=== PATIENT | female | born 1995 | race Caucasian/White ===

== ENCOUNTER → 2018-03-25 12:27 | Outpatient (CLI) | payer OTHER, MEDICAID, SELFPAY ==
[2018-03-25 14:49] LABS: Hematocrit 39.9 % (36-46); Hemoglobin 13.6 g/dL (12.0-16.0)
[2018-03-25 15:13] LABS: Glucose Tol Interpretation INTERPRETATION
[2018-03-25 15:34] LABS: GTT (PREG) 1 Hour PP 50gm Dose 79 mg/dL (76-139)
== END ==
PROVIDERS: PCP Family Medicine; Visit Provider Family Medicine
DX: Z3A.26 26 weeks gestation of pregnancy (principal)
CPT/HCPCS: 36415; 82950; 85014; 85018

== ENCOUNTER → 2018-04-22 11:03 | Outpatient (CLI) | payer OTHER, MEDICAID, SELFPAY ==
[2018-04-22 15:35] LABS: Urine N gonorrhoeae NOT DETECTED
[2018-04-22 15:38] LABS: Urine Chlamydia NOT DETECTED
[2018-04-23 09:43] LABS: Strep Grp B PCR NEG for Grp B Strep
== END ==
PROVIDERS: PCP Family Medicine; Visit Provider Family Medicine
DX: Z3A.36 36 weeks gestation of pregnancy (principal)
CPT/HCPCS: 87491; 87591; 87653

== ENCOUNTER 2018-05-14 08:07 | Outpatient (CLI) | payer OTHER, MEDICAID, SELFPAY ==
--- NOTE | 2018-05-14 09:23 | PM.OBTRLD ---
Visit Information Visit Information Date of evaluation: 05/14/18 Primary OB Provider: Jessie Cerda Reason for Evaluation: Yes rupture of membranes Comments/Additional reasons for admission: Patient reported leaking fluid prior to arrival however amnisure was negative. [facility] Medical History History of depression (Chronic) Migraine (Chronic) History of illicit drug use (Resolved) Surgical History History of mandibular surgery (Resolved) History of tonsillectomy (Resolved) Family History Other Adopted Social History marital status: Smoking Status: Former smoker alcohol intake: former 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) Evaluation Evaluation Baseline heart rate: 130 Variability: Moderate (11-25) monitor accelerations: Present monitor decelerations: Absent Uterine Contraction Intensity: Mild Category of Tracing: I Non-invasive Membranes Rupture Test: negative Diagnosis, Plan/Disposition Final Diagnosis (1) 39 weeks gestation of : Current Visit: No Status: Acute Plan/Disposition Plan: Reactive NST, amnisure negative. Follow up in clinic as scheduled or return to center as needed. OB Disposition: home
--- NOTE | 2018-05-14 09:26 | P.TNLD_ITS ---
Visit Information Visit Information Date of evaluation: 05/14/18 Primary OB Provider: Jessie Cerda Reason for Evaluation: Yes rupture of membranes Comments/Additional reasons for admission: Patient reported leaking fluid prior to arrival however amnisure was negative. [facility] Medical History History of depression (Chronic) Migraine (Chronic) History of illicit drug use (Resolved) Surgical History History of mandibular surgery (Resolved) History of tonsillectomy (Resolved) Family History Other Adopted Social History marital status: Smoking Status: Former smoker alcohol intake: former 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) Evaluation Evaluation Baseline heart rate: 130 Variability: Moderate (11-25) monitor accelerations: Present monitor decelerations: Absent Uterine Contraction Intensity: Mild Category of Tracing: I Non-invasive Membranes Rupture Test: negative Diagnosis, Plan/Disposition Final Diagnosis (1) 39 weeks gestation of : Current Visit: No Status: Acute Plan/Disposition Plan: Reactive NST, amnisure negative. Follow up in clinic as scheduled or return to center as needed. OB Disposition: home
== END 2018-05-14 08:57 | disposition home or self-care (01) ==
LOC: OB 05-19 07:27
PROVIDERS: PCP Family Medicine; Visit Provider Family Medicine
DX: Z03.71 Encounter for suspected problem with amniotic cavity and membrane ruled out (principal); Z3A.39 39 weeks gestation of pregnancy
CPT/HCPCS: 59025; 84112; G0378; G0379

== ENCOUNTER 2018-05-20 15:12 | Inpatient (IN) | payer OTHER, MEDICAID, SELFPAY ==
[2018-05-20] MEDS: LACTATED RINGERS 1,000 ML 125 ML IV (15:45)
[2018-05-20 16:22] LABS: Add Manual Diff / Slide Review NO; Basophils Percent Auto 0.7 % (0-2); Eosinophils Percent Auto 0.2 % (2-4); Hematocrit 41.3 % (36-46); Hemoglobin 13.9 g/dL (12.0-16.0); Lymphocytes Percent Auto 15.1 % (25-40); Mean Corpuscular HGB Conc 33.8 % (30-36); Mean Corpuscular Hemoglobin 29.9 PG (26-34); Mean Corpuscular Volume 88.6 fL (80-100); Monocytes Percent Auto 7.1 % (3-14); Neutrophils Absolute Auto 8400 /uL (3000-5900); Neutrophils Percent Auto 76.9 % (50-75); Platelet Count 222 X10^3/uL (150-400); Red Blood Cell Count 4.65 X10^6/uL (4.0-5.2); Red Cell Distribution Width 16.4 % (11.6-14.8); White Blood Cell Count 10.8 X10^3/uL (4.5-11.0)
[2018-05-20] MEDS: fentaNYL 100 MCG/2 ML INJ IV (16:30)
[2018-05-20] MEDS: ONDANSETRON 4 MG/2 ML INJ IV (16:30)
--- NOTE | 2018-05-20 17:21 | PM.OBHP.1 ---
OB HPI Date/Time Date of admission: 05/20/18 Date Patient Seen: 05/20/18 Time Patient Seen: 17:26 History of Present Illness Chief complaint: Labor : 1 Para: 0 Estimated Date of Delivery: 05/19/18 Estimated Gestational Age (weeks): 40w1d Narrative: Yvonne Pérez is a 23 year old female, at 40+1 weeks gestation. H/o IVDA very early in . UDS positive for marijuana once during , otherwise negative. Planning to adopt out. Indications Other reason(s) for admission: History of Present care: initiated at week # (22 weeks) Dating criteria: based on 2nd trimester US only Ultrasounds: normal mid trimester US Obstetrical complications: none Medical complications: none Preadmission Labs Blood type: A (+) positive -: Antibody screen: negative, GBS status: negative, HBsAG: negative, HIV: negative, HSV 1: negative, HSV 2: negative and RPR/VDLR: negative -: Chlamydia screen: not detected and Gonorrhea screen: not detected -: Rubella: immune and Varicella: not immune HCT: 39.7 HCAB: negative Urine: Negative 1 hr GTT: 79 Evaluation Evaluation Baseline heart rate: 140 Variability: Moderate (11-25) monitor accelerations: Present monitor decelerations: Absent Contraction Frequency (minutes): 2 Uterine Contraction Intensity: Strong/Firm Category of Tracing: I Cervical dilation (cm): 3 Cervical effacement (%): 100 station: 0 Laboratory results: Laboratory Tests 05/20/18 15:45 WBC 10.8 RBC 4.65 Hgb 13.9 Hct 41.3 MCV 88.6 MCH 29.9 MCHC 33.8 RDW 16.4 H Plt Count 222 Neut % (Auto) 76.9 H Lymph % (Auto) 15.1 L [place] % (Auto) 7.1 Eos % (Auto) 0.2 L Baso % (Auto) 0.7 Neut # (Auto) 8400 H PFSH Medical History History of depression (Chronic) Migraine (Chronic) History of illicit drug use (Resolved) Surgical History History of mandibular surgery (Resolved) History of tonsillectomy (Resolved) Family History Other Adopted Social History marital status: Smoking Status: Former smoker alcohol intake: former 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) Meds Home Medications Medication Instructions Recorded Confirmed Type sertraline #0 12/29/17 History Allergies Allergy/AdvReac Type Severity Reaction Status Date / Time morphine Allergy Intermediate Agitated Verified 05/20/18 16:10 Review of Systems Review of Systems All systems reviewed & are unremarkable except as noted in HPI and below Exam Const General: healthy appearing and comfortable HENMT Head: normal to inspection Ears: hearing grossly normal bilaterally Nose: external nose normal Face and sinus: normal facial exam Mouth: oral mucosae normal Teeth and gingiva: dentition normal (broken front tooth) Throat: posterior oropharynx normal Eyes General: appearance normal, both eyes and all related structures Neck Neck: normal visual inspection Resp Effort & Inspection: normal respiratory effort Auscultation: clear to auscultation bilaterally Cardio Rate: regular rate Rhythm: regular rhythm Heart Sounds: S1 normal and S2 normal Neuro General: alert, awake and oriented x3 Extrem General: normal to inspection and no pedal edema Psych Appearance: grossly normal Mental Status: mental status grossly normal Speech and Movement: speech and movement normal Mood: congruent mood Affect: normal affect Attitude: cooperative Thought Process: normal Objective Labs Result Diagrams: 05/20/18 15:45 Labs: Laboratory Results - last 24 hr 05/20/18 15:45 WBC 10.8 RBC 4.65 Hgb 13.9 Hct 41.3 MCV 88.6 MCH 29.9 MCHC 33.8 RDW 16.4 H Plt Count 222 Neut % (Auto) 76.9 H Lymph % (Auto) 15.1 L [place] % (Auto) 7.1 Eos % (Auto) 0.2 L Baso % (Auto) 0.7 Neut # (Auto) 8400 H Assessment and Plan (1) 40 weeks gestation of : Current visit: Yes Status: Acute Plan: Plan: 23 year old at 40+1 wks gestation in active labor. GBS negative. Plan - Epidural pain control - Expectant management - Adoptive family will be present at delivery, planning to room in with infant after delivery
[2018-05-20] MEDS: LACTATED RINGERS 1,000 ML 100 ML IV (18:39)
[2018-05-20 19:10] VITALS: BP 153/93
--- NOTE | 2018-05-20 21:32 | PM.OBPNLAB ---
Date/Time Date Patient Seen: 05/20/18 Time Patient Seen: 21:00 Pain Control Pain control: tolerating well and epidural Pelvic Exam Dilation (cm): 6 Effacement (%): 100 station: 0 Amniotic membrane status: Ruptured (AROM with thin meconium) Contractions Contractions on admission: regular Contraction pattern: Regular Contraction intensity: Strong/Firm Status status: Category l Heart Rate Baseline: 140 Monitor Accelerations: Present Monitor Decelerations: Absent Monitor Variability: Moderate Assessment and Plan Assessment: active labor Plan: continuous present management
--- NOTE | 2018-05-21 02:17 | PM.OBPNLAB ---
Date/Time Date Patient Seen: 05/21/18 Time Patient Seen: 02:17 Pain Control Pain control: tolerating well and epidural Pelvic Exam Dilation (cm): 8 Effacement (%): 100 station: +1 Amniotic membrane status: Ruptured (AROM with thin meconium) Contractions Monitor mode: External Contraction pattern: Irregular Status status: Category l Heart Rate Baseline: 150 Monitor Accelerations: Present Monitor Decelerations: Absent Monitor Variability: Moderate Assessment and Plan Assessment: active labor Plan: begin patient augmentation
[2018-05-21] MEDS: OXYTOCIN PREMIX 30 UNIT/500 ML PLAST..BAG IV (02:35)
--- NOTE | 2018-05-21 04:32 | PM.OBPNLAB ---
Date/Time Date Patient Seen: 05/21/18 Time Patient Seen: 04:07 Pain Control Pain control: tolerating well and epidural Pelvic Exam Amniotic membrane status: Ruptured (AROM with thin meconium) Comments: SVE 8.5/100/+1 with head more applied to cervix compared to last check Contractions Monitor mode: External Contraction pattern: Irregular Contraction intensity: Strong/Firm Status status: Category l Heart Rate Baseline: 150 Monitor Accelerations: Present Monitor Decelerations: Absent Monitor Variability: Moderate Comments: Contractions are either difficult to trace or irregular Assessment and Plan Assessment: active labor Comments: Dysfunctional contraction pattern with modest cervical change in the last two hours. Will try Edith monitor and increase pitocin. Re-evaluate in one hour. If contractions are not regular or tracing well will consider IUPC.
[2018-05-21] MEDS: LACTATED RINGERS 1,000 ML 100 ML IV (05:24)
--- NOTE | 2018-05-21 06:14 | PM.OBPNLAB ---
Date/Time Date Patient Seen: 05/21/18 Time Patient Seen: 05:40 Pain Control Pain control: tolerating well and epidural Pelvic Exam Dilation (cm): 8 Effacement (%): 100 station: +1 Amniotic membrane status: Ruptured (AROM with thin meconium) Contractions Monitor mode: External Pitocin rate (mU/min): 2 Contraction frequency (min): 2 Contraction pattern: Regular Contraction intensity: Moderate Status status: Category l Heart Rate Baseline: 150 Monitor Accelerations: Present Monitor Decelerations: Absent Monitor Variability: Moderate Assessment and Plan Comments: IUPC placed due to lack of cervical change despite regular contractions. Will titrate pitocin to adequate contractions and re-evaluate after 1-2 hours of adequate contractions.
--- NOTE | 2018-05-21 07:15 | PM.OBPNLAB ---
Date/Time Date Patient Seen: 05/21/18 Time Patient Seen: 07:00 Pain Control Pain control: tolerating well and epidural Pelvic Exam Dilation (cm): 8 Effacement (%): 100 station: +1 Amniotic membrane status: Ruptured (AROM with thin meconium) Contractions Monitor mode: Internal Contraction frequency (min): 2 Contraction pattern: Regular Contraction intensity: Moderate Status status: Category ll Heart Rate Baseline: 150 Monitor Accelerations: Absent Monitor Decelerations: Absent Monitor Variability: Minimal Assessment and Plan Comments: Arrest of stage 1 of labor. Contractions are frequent but inadequate despite pitocin. Unable to increase pitocin due to uterine tachysystole. Discussed risks of section including bleeding, infection, risk of injury to surrounding organs and structures. Patient understands risks and agrees to proceed with primary section for arrest of labor.
[2018-05-21] MEDS: CEFAZOLIN 2 GM/100 ML FROZ.PIGGY IV (08:14)
--- NOTE | 2018-05-21 08:48 | SUR.OPER ---
Supine on Padded OR bed, head on pillow, safety belt at thigh, arms secured on padded arm boards at <90 degrees abduction. Bump under right buttock. Legs uncrossed with pillow under knees, gel pad to heels, tape over blanket to lower legs.
[2018-05-21 09:14] VITALS: BP 142/89; PULSE 68; RESP 14; TEMP 36.3; O2SAT 97
[2018-05-21 09:20] VITALS: BP 135/75; PULSE 65; RESP 20; O2SAT 98
[2018-05-21 09:25] VITALS: BP 128/80; PULSE 63; RESP 16; O2SAT 96
[2018-05-21 09:30] VITALS: BP 133/84; PULSE 58; RESP 18; TEMP 36.9; O2SAT 96
--- NOTE | 2018-05-21 09:30 | P.OP_ITS ---
Operative Date/Time/Diagnoses Date of procedure: 05/21/18 Time of procedure: 08:00 Pre-op diagnosis: Arrest of second stage of labor 40 weeks of Post-op diagnosis: same Procedure & Clinicians Procedure: Primary low transverse section Same procedure as scheduled: Yes Indications: Arrest first stage of labor Surgeon: Jessie Cerda Nursing Home Administrator: Zuleima Denson Anesthesia Type: Spinal Operative Notes Findings: Live female , normal uterus, tubes and ovaries Closure Type: primary Specimen(s): none sent Implants & Drains: Hearn to continuous drainage Estimated Blood Loss (mL): 700 Blood products transfused: none Procedure in detail: The patient was taken to the operating room where she was placed in the seated position. Epidural was felt to be inadequate so spinal anesthesia was administered. She was then placed in the dorsal supine position with a leftward tilt. She was prepped and draped in the usual sterile fashion. A timeout was performed. After spinal analgesia was found to be adequate, a Pfannenstiel skin incision was made 2 fingerbreadths above the pubic symphysis and carried through to the underlying layer fascia. The fascia was nicked in the midline, and the incision extended bilaterally with the Recinos scissors. The superior aspect of the fascial incision was grasped with a Faiza clamps, elevated, and the underlying rectus muscles dissected off sharply and bluntly. Attention was then turned to the inferior aspect of this incision which in a similar fashion was grasped with a Faiza clamps, elevated, and the underlying rectus muscles dissected off sharply and bluntly. The rectus muscles were in the midline. The peritoneum was identified, grasped between 2 hemostats, and entered sharply with the Metzenbaum scissors. This incision was extended superiorly and inferiorly with good visualization of the bladder. The bladder blade was inserted. The vesicouterine peritoneum was identified, grasped with the pickup, and entered sharply with the Metzenbaum scissors. This incision was extended bilaterally, and the bladder flap was created digitally. The bladder blade was reinserted. The lower uterine segment was incised in a transverse fashion with the scalpel. Upon entering the amniotic sac there was a large amount of meconium stained amniotic fluid. The infant's head was delivered. The nose and mouth were suctioned with bulb suction. The remainder of the body delivered without difficulty. The cord was double clamped and cut. The was handed off to waiting RN and RT. The placenta was delivered manually. The uterus was cleared of all clots and debris. The uterine incision was repaired with #1 chromic in a running interlocking fashion , and a second layer the same suture was used for an imbricating layer. Hemotasis was achieved. The tubes and ovaries were examined and were found to be normal. The gutters were cleared of all clots and debris. The parietal peritoneum was closed using 2-0 Vicryl in a running fashion. The fascia was reapproximated using #1 Vicryl in a running fashion. 3 simple interrupted sutures of 3-0 Vicryl were placed to reapproximate the subcutaneous layer. The skin was closed with 4-0 undyed Vicryl in a subcuticular fashion. Steri-Strips were placed. 4x4s and bandage applied. The uterus was expressed of a small amount of old blood. Sponge, lap, and instrument counts were correct. The patient tolerated the procedure well, and was taken to PACU in stable condition. Complications: none Condition: stable Disposition: PACU
--- NOTE | 2018-05-21 09:31 | SUR.PHASEI ---
Report called to Aaron Pal.
[2018-05-21] MEDS: OXYCODONE/ACETAMINOPHEN 5/325 TABLET 1 TAB PO (10:00)
--- NOTE | 2018-05-21 10:00 | SUR.PHASEI ---
Pt transferred to [facility], report to Demarco. VS stable. IV patent. Small amt of bloody drainage seeping under dressing, attempted to turn patient to change pad and clean but pt became teary and stated she hurt too badly to be turned. Pt cleaned and new pad tucked gently under the patient. Pt reassured. Hearn patent.
[2018-05-21] MEDS: hydrOXYzine pamoate 25 MG CAPSULE PO ×2 (12:17→16:17)
[2018-05-21] MEDS: OXYCODONE IR 5 MG TABLET 10 MG PO ×3 (12:17→20:22)
--- NOTE | 2018-05-21 12:24 | CM.SWNOTE ---
Adoption Planning VICKIE received a call from the Center RN who states that MOB delivered a healthy baby via C section and that [facility], Dora Cramer, had been here to provide the adoption support to MOB and adoptive family and was requesting a call from VICKIE. VICKIE called Dora Bela from [facility] ([phone]) and Dora stated that MOB was still following her adoption plan and was currently not wanting to room with baby and was requesting baby be with adoptive family in another room. Dora states that she will come back later today to see how MOB is doing and will continue to provide support with whatever plan MOB would like. Dora will also come in the morning with the court order to allow adoptive family to discharge home with baby when baby is medically stable. Dora states that she will keep SW updated on discharge plans but that so far MOB is following her previously drafted adoption plan and no current needs or concerns identified. VICKIE spoke with RN and so far all on the same page and understanding and aware that Dora from [facility] will be bedside later today to provide further support and planning knowing that the plan can be flexible. Per RN, working on managing pt's pain better and so far no concerns with MOB, baby, or adoptive parents. Plan: VICKIE to follow for likely plan of baby discharging home with adoptive parents and support from Dora with [facility]. Dora to keep SW updated on plan. BREA Quinn
[2018-05-21] MEDS: KETOROLAC 30 MG/ML VIAL IV ×2 (14:54→22:11)
[2018-05-22] MEDS: OXYCODONE IR 5 MG TABLET 10 MG PO ×3 (00:23→08:27)
[2018-05-22] MEDS: KETOROLAC 30 MG/ML VIAL IV (04:19)
--- NOTE | 2018-05-22 08:13 | PM.OBPN.1 ---
Subjective - OB Interval history: Patient complains of cramping and incisional pain however states that it is ok this morning after oxycodone. She has not had her rudolph removed yet but did attempt to stand once during the night and it was quite painful. Eating without difficulty, no nausea. Managed to sleep a few hours. Exam Vital Signs (past 8 hours): Oxygen Delivery Method Room Air Temperature 99.9?, blood pressure 132/86, heart rate 79, respirations 16 Narrative Exam Narrative: General: Awake and alert, no acute distress. HEENT: NCAT, EOMI, moist oral mucosa CV: Regular rate and rhythm, no murmurs, rubs or gallops Lungs: CTAB, no wheezes, rales, or rhonchi Abdomen: Soft, tender to palpation throughout; lower abdominal dressing clean and dry without drainage Extremities: Warm, no edema, 2+ pedal pulses bilaterally Objective Labs Result Diagrams: 05/20/18 15:45 Assessment & Plan (1) 40 weeks gestation of : Status: Acute Current Visit: Yes (2) Status post primary low transverse section: Status: Acute Current Visit: Yes (3) Arrested active phase of labor: Status: Acute Current Visit: Yes Plan day: 1 plan OB: routine postop care Comments: 23-year-old G1 now P1 postop day one after primary for arrest of labor. Pain control has been challenging due to history of IV heroin use. Pain currently well controlled this morning. Encouraged patient to get out of bed today. Rudolph will be removed. Continue routine postop care. I anticipate she will need a day or two longer than usual for pain control. is doing well with adoptive parents. will discharge today with adoptive parents. Time Spent With Patient Total time spent is greater than 50% in coordination of care (as documented) at patient's floor/unit and/or counseling patient: less than 15 minutes
[2018-05-22] MEDS: DOCUSATE 250 MG CAPSULE PO (08:18)
[2018-05-22 08:32] LABS: Hematocrit 34.4 % (36-46); Hemoglobin 11.5 g/dL (12.0-16.0)
[2018-05-22] MEDS: IBUPROFEN 600 MG TABLET PO ×3 (10:04→22:34)
[2018-05-22] MEDS: OXYCODONE/ACETAMINOPHEN 5/325 TABLET 2 TAB PO ×3 (12:42→20:14)
[2018-05-23] MEDS: OXYCODONE/ACETAMINOPHEN 5/325 TABLET 2 TAB PO ×4 (00:39→12:54)
[2018-05-23] MEDS: IBUPROFEN 600 MG TABLET PO ×2 (04:35→10:40)
[2018-05-23] MEDS: DOCUSATE 250 MG CAPSULE PO (08:49)
--- NOTE | 2018-05-23 09:14 | PM.DS.1 ---
History of Present Illness Date Patient Seen: 05/23/18 Time Patient Seen: 09:14 Chief complaint: Labor Narrative: Patient is a 23-year-old now 1 who delivered via primary after arrest of first stage of labor on 05/21/18. Discharge Providers Date of admission: 05/20/18 15:12 Primary care physician: Jessie Cerda DO Discharge provider: Jessie Cerda DO Summary Discharge Diagnosis: Forty weeks gestation Epidural anesthesia Spinal anesthesia Primary section Arrest of first stage of labor Hospital Course: Patient presented to the center in active labor on 05/20/18 and progressed to 8 cm but no further despite several hours of Pitocin. IUPC was placed and contractions were inadequate despite Pitocin so the decision was made for primary . Infant was vigorous at delivery with significant molding over the right occiput suggesting the infant was asynclitic. Postoperatively patient had difficulty with pain control however by postop day two was doing well with Percocet and ibuprofen. She had decreased Percocet use from 10 mg to 5 mg and reported adequate pain control. At the time of discharge she was eating ambulating without difficulty. Bleeding was moderate. discharged today after delivery with adoptive parents as planned. Emotionally patient states she is doing well and is very happy for the adoptive family. Counseled parents on breast milk suppression. Recommended ice packs, tight-fitting draws and ibuprofen as needed. She will resume sertraline when she returns home. Advised patient to call for fevers, severe pain or bleeding through more than a pad an hour. No intercourse for six weeks. Follow-up in clinic on 05/27/18 for wound check. Exam Vital Signs (past 8 hours): Oxygen Delivery Method Room Air Temperature 98.2?, blood pressure 123/79, heart rate 105, respirations 20 General: Awake and alert, no acute distress. HEENT: NCAT, EOMI, moist oral mucosa CV: Regular rate and rhythm, no murmurs, rubs or gallops Lungs: CTAB, no wheezes, rales, or rhonchi Abdomen: Steri-Strips in place over incision. Bandage is clean and dry. Abdomen is soft, nontender; bowel tones active; uterus firm 1 cm below umbilicus Extremities: Warm, no edema, 2+ pedal pulses bilaterally Objective Labs Result Diagrams: 05/22/18 08:07 Discharge Plan Discharge Plan Patient Disposition: Home, Self-Care Discharge Med Rec/Prescriptions Prescriptions: New oxycodone-acetaminophen 5-325 mg Tablet 1 tab PO Q4H PRN (Reason: Pain, Severe (7-10)) Qty: 30 RF: 0 ibuprofen 600 mg Tablet 600 mg PO Q6HR PRN (Reason: As Needed For Fever/Mild Pain) Qty: 30 RF: 0 docusate sodium 250 mg Capsule 250 mg PO DAILY Qty: 30 RF: 0 Continue sertraline 25 MG tablet Qty: 0 RF: 0 Follow up/Referrals: Jessie Cerda DO [Primary Care Provider] - 3-5 Days (Clinic will call to schedule a post-op check on 05/27/18) Provider Discharge Instructions Diet: Diet as Tolerated and Regular Wound Care Dressing: Keep dressing clean and dry. Place new dressing after showering. Visit Report/Discharge Packet Instructions: Women's Health Study Report: Depression, Depression, , DI for Vaginal After Section () Visit Report Forms: Stroke Signs & Symptoms Discharge Data Primary Care Provider: Jesise Cerda Attending Provider: Jessie Cerda Admit Date/Time: 05/20/18 15:12
[2018-05-23 12:54] VITALS: TEMP 36.6
[2018-05-23 15:00] VITALS: BP 133/84; PULSE 58; RESP 18; TEMP 36.6
== END 2018-05-23 14:30 | disposition home or self-care (01) | DRG 766 ==
PROVIDERS: Admitting Provider Family Medicine; PCP Family Medicine; Visit Provider Family Medicine
PROC: 10D00Z1 Extraction of Products of Conception, Low, Open Approach (ICD-10-PCS; CPT 59514; principal; 2018-05-21 07:45)
DX: O77.0 Labor and delivery complicated by meconium in amniotic fluid (principal); Z3A.40 40 weeks gestation of pregnancy; Z37.0 Single live birth; O62.1 Secondary uterine inertia; O99.344 Other mental disorders complicating childbirth; F32.9 Major depressive disorder, single episode, unspecified
CPT/HCPCS: 01967; 01968; 36415; 59050; 59514; 59515; 85014; 85018; 85025; 86850; 86900; 86901; G0379; J0690; J1885; J2405; J2590; J2704; J3010

== ENCOUNTER 2018-05-29 13:33 | Emergency (ER) | payer OTHER, MEDICAID, SELFPAY ==
[2018-05-29 13:45] VITALS: BP 119/77; PULSE 94; RESP 18; TEMP 36.9; O2SAT 97; BMI 23.5
== END 2018-05-29 15:37 | disposition left against medical advice (07) ==
LOC: ED 13:35
PROVIDERS: PCP Family Medicine
DX: O90.2 Hematoma of obstetric wound (principal)
CPT/HCPCS: 99281; 99282

== ENCOUNTER 2018-05-30 11:12 | Emergency (ER) | payer OTHER, MEDICAID, SELFPAY ==
[2018-05-30 11:15] VITALS: BP 127/77; PULSE 100; RESP 16; TEMP 36.4; O2SAT 99; BMI 23.5
[2018-05-30] MEDS: HYDROMORPHONE 0.5 MG INJ 1 MG IV (13:31)
[2018-05-30 13:36] LABS: INR 1.2 (0.9-1.3)
[2018-05-30 13:41] LABS: Lactate (Lactic Acid) 0.8 mmol/L (0.7-2.1)
[2018-05-30 13:42] LABS: Alanine Aminotransferase 26 IU/L (9-52); Albumin Globulin Ratio 1.1 (1.0-2.8); Alkaline Phosphatase 216 U/L (38-126); Aspartate Aminotransferase 18 IU/L (14-36); BUN Creatinine Ratio 22.9 (6-22); Bilirubin Total 0.4 mg/dL (0.2-1.3); Blood Urea Nitrogen 16 mg/dL (7-17); Calcium 10.3 mg/dL (8.4-10.2); Carbon Dioxide 30 mmol/L (22-32); Chloride 102 mmol/L (98-107); Estimated Glomerular Filt Rate > 60.0 mL/min (>60); Globulin 3.5 g/dL (1.7-4.1); Glucose 96 mg/dL (70-100); HEMOLYSIS < 15 (0-50); Potassium 4.3 mmol/L (3.4-5.1); Sodium 143 mmol/L (137-145); Total Protein 7.5 g/dL (6.3-8.2)
[2018-05-30 13:44] LABS: Add Manual Diff / Slide Review NO; Basophils Percent Auto 0.2 % (0-2); Eosinophils Percent Auto 0.3 % (2-4); Hematocrit 39.5 % (36-46); Hemoglobin 13.4 g/dL (12.0-16.0); Lymphocytes Percent Auto 14.5 % (25-40); Mean Corpuscular HGB Conc 33.9 % (30-36); Mean Corpuscular Hemoglobin 29.8 PG (26-34); Mean Corpuscular Volume 88.1 fL (80-100); Monocytes Percent Auto 4.3 % (3-14); Neutrophils Absolute Auto 8700 /uL (3000-5900); Neutrophils Percent Auto 80.7 % (50-75); Platelet Count 531 X10^3/uL (150-400); Red Blood Cell Count 4.48 X10^6/uL (4.0-5.2); Red Cell Distribution Width 15.9 % (11.6-14.8); White Blood Cell Count 10.8 X10^3/uL (4.5-11.0)
[2018-05-30 14:09] LABS: Procalcitonin < 0.05 ng/mL (<0.5)
[2018-05-30 14:22] VITALS: BP 115/59; PULSE 74; RESP 16; O2SAT 99
--- NOTE | 2018-05-30 17:03 | ED_ITS ---
HPI - Wound/Laceration General Chief Complaint: Wound/Laceration Stated Complaint: C SECTION INCISIONS OPENED, PAIN IN STOMACH History of Present Illness HPI narrative: HPI 23-year-old female presents 9 days post-load transverse for evaluation of increased drainage and pain from her incision site as well as increased vaginal discharge. Patient denies dysuria, fevers, chills. Patient had for arrest and 2nd stage of labor. Patient began experiencing drainage and discomfort following her surgery and was evaluated on 05/27 by her family medicine physician (who was also performing per obstetrical care) who placed her on cephalexin and recommended one week follow-up. M/S/F/SocHx notable for: please see HPI; remainder reviewed with patient and in chart. ROS: Negative constitutional, eye, cardiovascular, pulmonary, GI, , MSK, skin , neurologic, psychiatric, endocrine unless noted in the HPI. Exam Gen: pleasant, nontoxic-appearing, resting in mild discomfort. HEENT: NC, AT, PEERL, EOMI. Resp: Clear to auscultation bilaterally, normal work of breathing, no accessory muscle usage. Card: Regular rate and rhythm with no murmurs, rubs, or gallops, extremities warm and well perfused. GI: Non-tender to palpation throughout all quadrants, no focal tenderness at McBurney's point, negative Corley's sign, non-distended, no rebound or guarding. : lower abdominal tenderness palpation. Low transverse incision site, right calf with darker serosanguineous drainage, no purulence appreciated. Chaperoned pelvic exam with visually normal female external genitalia, vaginal canal without lesions, scant dark red blood from the cervical office. MSK: No visible deformities, strength and tone without visually appreciable deficit. Skin: Normal color with no visible lesions. Neuro: AO x 3, no facial asymmetry, vision and hearing WNL. Psych: Mood and affect appropriate. Labs / Imaging: WBC 10.8, HB 13.4, PLT 531 (baseline 222-331), sodium 143, potassium 4.3, lactic 0.8, procalcitonin <0.05. Focused Soft Tissue Ultrasound Procedure: Limited evaluation of the incision line. Indication: Evaluation for abscesses and foreign bodies. Views obtained: sagittal and transverse. Findings: subcutaneous edema, left of midline there is a subcutaneous fluid collection of 1.8 x 1.1 x 1.6 cm, to the right of midline there is a smaller approximately 1 cm in diameter fluid collection. MDM Previous chart, nursing note, labs, imaging, and vitals reviewed. A/P: 23-year-old female presents 9 days post-load transverse for evaluation of increased drainage and pain from her incision site as well as increased vaginal discharge. Patient afebrile without leukocytosis, however she has a notable increase in platelets over her baseline, pelvic exam without evidence of vaginal involvement, given the focal tenderness along the incision site as well as the subcutaneous edema and fluid collections suspect incision site infection with abscess that represents a treatment failure given her oral Keflex. As the abscesses or greater than centimeter is unlikely that this will resolve with conservative management. The patient's family medicine physician who is providing obstetrical services was contacted, Dr. Cerda to evaluate the patient. Patient care transferred to the [facility] provider, Dr. Flynn, pending completion of evaluation. Impression: surgical site infection (please reference below for remainder of encounter information) Related Data Home Medications Medication Instructions Recorded Confirmed sertraline #0 12/29/17 05/27/18 Previous Rx's Medication Instructions Recorded docusate sodium 250 mg PO DAILY #30 cap 05/23/18 ibuprofen 600 mg PO Q6HR PRN #30 tab 05/23/18 oxycodone-acetaminophen 1 tab PO Q4H PRN #30 tab 05/23/18 cephalexin 500 mg capsule 500 mg PO QID #28 cap 05/27/18 Allergies Allergy/AdvReac Type Severity Reaction Status Date / Time morphine Allergy Intermediate Agitated Verified 05/30/18 11:15 PFSH Social History marital status: Smoking Status: Former smoker alcohol intake: former 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) Exam Initial Vital Signs Initial Vital Signs: Vital Signs Temperature 97.5 F L 05/30/18 11:15 Pulse Rate 100 H 05/30/18 11:15 Respiratory Rate 16 05/30/18 11:15 Blood Pressure 127/77 H 05/30/18 11:15 Pulse Oximetry 99 05/30/18 11:15 Course Orders Ordered: ED Orders 05/30/18 13:20 Complete Blood Count AUTO DIFF Stat Comprehensive Metabolic Panel Stat Lactate (Lactic Acid) Stat Procalcitonin Stat Prothrombin Time INR Stat Discontinued Medications Hydromorphone HCl (Dilaudid) 1 mg IV NOW ONE Stop: 05/30/18 11:54 Last Admin: 05/30/18 13:31 Dose: 1 mg Oxycodone HCl ([place]one) 10 mg PO NOW ONE Stop: 05/30/18 17:36 Vital Signs - 8 hr 05/30/18 11:15 05/30/18 14:22 05/30/18 17:04 Temperature 97.5 F L 98.0 F Pulse Rate 100 H 74 74 Respiratory Rate 16 16 18 Blood Pressure 127/77 H Blood Pressure [Left Arm] 115/59 L 124/71 H Pulse Oximetry 99 99 100 MDM - Wound/Laceration Lab Data Result diagrams: 05/30/18 13:20 05/30/18 13:20 Lab Results 05/30/18 05/30/18 05/30/18 Range/Units 13:20 13:20 13:20 WBC 10.8 (4.5-11.0) X10^3/uL RBC 4.48 (4.0-5.2) X10^6/uL Hgb 13.4 (12.0-16.0) g/dL Hct 39.5 (36-46) % MCV 88.1 (80-100) fL MCH 29.8 (26-34) PG MCHC 33.9 (30-36) % RDW 15.9 H (11.6-14.8) % Plt Count 531 H (150-400) X10^3/uL Neut % (Auto) 80.7 H (50-75) % Lymph % (Auto) 14.5 L (25-40) % [place] % (Auto) 4.3 (3-14) % Eos % (Auto) 0.3 L (2-4) % Baso % (Auto) 0.2 (0-2) % Neut # (Auto) 8700 H (6162-6539) /uL PT 13.0 H (10.1-12.7) SECONDS INR 1.2 (0.9-1.3) Sodium (137-145) mmol/L Potassium (3.4-5.1) mmol/L Chloride (98-107) mmol/L Carbon Dioxide (22-32) mmol/L BUN (7-17) mg/dL Creatinine (0.52-1.04) mg/dL Estimated GFR (>60) mL/min BUN/Creatinine Ratio (6-22) Glucose (70-100) mg/dL Lactate (0.7-2.1) mmol/L Calcium (8.4-10.2) mg/dL Total Bilirubin (0.2-1.3) mg/dL AST (14-36) IU/L ALT (9-52) IU/L Alkaline Phosphatase (38-126) U/L Total Protein (6.3-8.2) g/dL Albumin (3.5-5.0) g/dL Globulin (1.7-4.1) g/dL Albumin/Globulin Ratio (1.0-2.8) Procalcitonin < 0.05 (<0.5) ng/mL 05/30/18 05/30/18 Range/Units 13:20 13:20 WBC (4.5-11.0) X10^3/uL RBC (4.0-5.2) X10^6/uL Hgb (12.0-16.0) g/dL Hct (36-46) % MCV (80-100) fL MCH (26-34) PG MCHC (30-36) % RDW (11.6-14.8) % Plt Count (150-400) X10^3/uL Neut % (Auto) (50-75) % Lymph % (Auto) (25-40) % [place] % (Auto) (3-14) % Eos % (Auto) (2-4) % Baso % (Auto) (0-2) % Neut # (Auto) (3862-3175) /uL PT (10.1-12.7) SECONDS INR (0.9-1.3) Sodium 143 (137-145) mmol/L Potassium 4.3 (3.4-5.1) mmol/L Chloride 102 (98-107) mmol/L Carbon Dioxide 30 (22-32) mmol/L BUN 16 (7-17) mg/dL Creatinine 0.70 (0.52-1.04) mg/dL Estimated GFR > 60.0 (>60) mL/min BUN/Creatinine Ratio 22.9 H (6-22) Glucose 96 (70-100) mg/dL Lactate 0.8 (0.7-2.1) mmol/L Calcium 10.3 H (8.4-10.2) mg/dL Total Bilirubin 0.4 (0.2-1.3) mg/dL AST 18 (14-36) IU/L ALT 26 (9-52) IU/L Alkaline Phosphatase 216 H (38-126) U/L Total Protein 7.5 (6.3-8.2) g/dL Albumin 4.0 (3.5-5.0) g/dL Globulin 3.5 (1.7-4.1) g/dL Albumin/Globulin Ratio 1.1 (1.0-2.8) Procalcitonin (<0.5) ng/mL Discharge Plan Departure Prescriptions: No Action sertraline 25 MG tablet Qty: 0 RF: 0 cephalexin [Keflex] 500 mg capsule 500 mg PO QID Qty: 28 RF: 0 oxycodone-acetaminophen 5-325 mg Tablet 1 tab PO Q4H PRN (Reason: Pain, Severe (7-10)) Qty: 30 RF: 0 ibuprofen 600 mg Tablet 600 mg PO Q6HR PRN (Reason: As Needed For Fever/Mild Pain) Qty: 30 RF: 0 docusate sodium 250 mg Capsule 250 mg PO DAILY Qty: 30 RF: 0
[2018-05-30 17:04] VITALS: BP 124/71; PULSE 74; RESP 18; TEMP 36.7; O2SAT 100
--- NOTE | 2018-05-30 18:16 | P.CONS_ITS ---
History of Present Illness Date Patient Seen: 05/30/18 Time Patient Seen: 17:45 Chief complaint: C SECTION INCISIONS OPENED, PAIN IN STOMACH Reason for consult: Incision Requesting provider: Rosalio Petersen Narrative: Patient presented to the emergency department today due to increased pain and drainage from her site. She underwent primary section on 10/27 after rest of labor. On 05/27/18 she followed up in clinic for a wound check. At that time there was concern for an early wound infection due to tenderness over her incision and slight erythema on the right. She was placed on Keflex and she has been taking the medication as prescribed. Denies fevers, chills or sweats. Vaginal bleeding has lessened. She has been passing some clots. She has not used pain medication in two days however continues to use ibuprofen regularly. [facility] Medical History History of depression (Chronic) Migraine (Chronic) History of illicit drug use (Resolved) Surgical History History of mandibular surgery (Resolved) History of tonsillectomy (Resolved) Family History Other Adopted Social History marital status: Smoking Status: Former smoker alcohol intake: former 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) Meds Home Medications Medication Instructions Recorded Confirmed Type sertraline #0 12/29/17 05/27/18 History docusate sodium 250 mg PO DAILY #30 cap 05/23/18 05/27/18 Rx ibuprofen 600 mg PO Q6HR PRN #30 tab 05/23/18 05/27/18 Rx doxycycline hyclate 100 mg PO BID #14 tab 05/30/18 Rx doxycycline hyclate 100 mg PO BID #20 cap 05/30/18 Rx hydrocodone-acetaminophen [[place]] See Label Instructions .ROUTE 05/30/18 Rx .COMPLEX PRN #10 tab oxycodone-acetaminophen 1 tab PO Q4H PRN #10 tab 05/30/18 Rx Allergies Allergy/AdvReac Type Severity Reaction Status Date / Time morphine Allergy Intermediate Agitated Verified 05/30/18 11:15 Review of Systems Constitutional Constitutional: Denies excessive sweating, Denies fatigue and Denies fever(s) Gastrointestinal Gastrointestinal: Reports abdominal pain and Reports constipation Endocrine Endocrine: Denies excessive sweating and Denies fatigue Exam Vital Signs (past 8 hours): - 05/30/18 11:15 05/30/18 14:22 05/30/18 17:04 Temperature 97.5 F L 98.0 F Pulse Rate 100 H 74 74 Respiratory Rate 16 16 18 Blood Pressure 127/77 H Blood Pressure [Left Arm] 115/59 L 124/71 H Pulse Oximetry 99 99 100 Oxygen Delivery Method Room Air Narrative Exam Narrative: General: Awake and alert, no acute distress. HEENT: NCAT, EOMI, moist oral mucosa CV: Regular rate and rhythm, no murmurs, rubs or gallops Lungs: CTAB, no wheezes, rales, or rhonchi Abdomen: Soft, nontender; bowel tones active; uterus firm well below umbilicus. Surgical incision healing with induration superiorly without fluctuance. Mild tenderness to palpation over right side of incision. No surrounding erythema. There are small areas of the incision with slight serosanguineous drainage. No purulent drainage. Extremities: Warm, no edema, 2+ pedal pulses bilaterally Objective Labs Result Diagrams: 05/30/18 13:20 05/30/18 13:20 Labs: Laboratory Results - last 24 hr 05/30/18 05/30/18 05/30/18 13:20 13:20 13:20 WBC 10.8 RBC 4.48 Hgb 13.4 Hct 39.5 MCV 88.1 MCH 29.8 MCHC 33.9 RDW 15.9 H Plt Count 531 H Neut % (Auto) 80.7 H Lymph % (Auto) 14.5 L [place] % (Auto) 4.3 Eos % (Auto) 0.3 L Baso % (Auto) 0.2 Neut # (Auto) 8700 H PT 13.0 H INR 1.2 Sodium Potassium Chloride Carbon Dioxide BUN Creatinine Estimated GFR BUN/Creatinine Ratio Glucose Lactate Calcium Total Bilirubin AST ALT Alkaline Phosphatase Total Protein Albumin Globulin Albumin/Globulin Ratio Procalcitonin < 0.05 05/30/18 05/30/18 13:20 13:20 WBC RBC Hgb Hct MCV MCH MCHC RDW Plt Count Neut % (Auto) Lymph % (Auto) [place] % (Auto) Eos % (Auto) Baso % (Auto) Neut # (Auto) PT INR Sodium 143 Potassium 4.3 Chloride 102 Carbon Dioxide 30 BUN 16 Creatinine 0.70 Estimated GFR > 60.0 BUN/Creatinine Ratio 22.9 H Glucose 96 Lactate 0.8 Calcium 10.3 H Total Bilirubin 0.4 AST 18 ALT 26 Alkaline Phosphatase 216 H Total Protein 7.5 Albumin 4.0 Globulin 3.5 Albumin/Globulin Ratio 1.1 Procalcitonin Assessment & Plan (1) Postoperative wound infection: Current visit: Yes Status: Acute Plan: Assessment/Plan Narrative: Patient's exam is similar to her exam in clinic four days ago and she is without fevers or leukocytosis. Suspect fluid collections seen on ultrasound are small seromas was rather than abscess. Drainage from incision is serosanguineous without purulence. Recommended switching to doxycycline for better Staph coverage. Prescription sent to pharmacy. Small refill of Percocet given to patient. Will re-evaluate incision in clinic in two days. Patient educated to keep the wound clean and dry. Call for fevers, purulent drainage or increasing pain.
[2018-05-30 19:08] VITALS: BP 129/72; PULSE 88; RESP 14; TEMP 37.1; O2SAT 99
== END 2018-05-30 19:10 | disposition home or self-care (01) ==
PROVIDERS: Emergency Provider Emergency Medicine; PCP Family Medicine
DX: T81.4XXA Infection following a procedure, initial encounter (principal)
CPT/HCPCS: 80053; 83605; 84145; 85025; 85610; 96374; 99283; 99284; J1170

== ENCOUNTER → 2022-07-18 17:39 | Outpatient (CLI) | payer OTHER, SELFPAY | PROVIDERS: PCP Family Medicine; Visit Provider Registered Nurse | DX: R30.0 Dysuria (principal) | CPT/HCPCS: 87077; 87086; 87186 ==

== ENCOUNTER 2023-03-30 03:30 | Emergency (ER) | payer OTHER, SELFPAY ==
[2023-03-30 03:32] VITALS: BP 131/72; PULSE 79; RESP 18; TEMP 36.9; O2SAT 100
[2023-03-30 03:38] VITALS: BP 131/72; PULSE 82; O2SAT 100
--- NOTE | 2023-03-30 03:45 | ED_ITS ---
HPI - Chest Pain General Chief Complaint: Chest Pain Stated Complaint: CHEST PAIN Time Seen by Provider: 03/30/23 03:40 History of Present Illness HPI narrative: Patient is a 28-year-old female presents today with chest pain. 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 She reports that tonight she woke up and feeling heaviness on her chest and feels like she can not take a deep breath. No fever or chills. No abdominal pain nausea vomiting. She is not had any recent travel no calf pain. Related Data Previous Rx's Medication Instructions Recorded medroxyprogesterone 150 mg/mL 150 mg IM [id number] #1 mL 01/07/19 intramuscular suspension phenazopyridine 200 mg tablet 200 mg PO Q8H PRN pain 6 doses #6 07/18/22 (Pyridium) tabs Allergies Allergy/AdvReac Type Severity Reaction Status Date / Time morphine Allergy Intermediate Agitated Verified 03/30/23 04:35 Review of Systems Review of Systems ROS Unobtainable: All systems reviewed & are unremarkable except as noted in HPI and below Patient History Medical History (Updated 03/30/23 @ 04:30 by Malorie Alejandro DO) History of depression History of illicit drug use Migraine Surgical History History of mandibular surgery History of tonsillectomy Family History Other Adopted Social History marital status: Smoking Status: Former smoker alcohol intake: former 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) Smoking Status: Former smoker Substance Use Type: does not use Exam Initial Vital Signs Initial Vital Signs: Vital Signs Temperature 98.5 F 03/30/23 03:32 Pulse Rate 79 03/30/23 03:32 Respiratory Rate 18 03/30/23 03:32 Blood Pressure 131/72 03/30/23 03:32 Pulse Oximetry 100 03/30/23 03:32 Oxygen Delivery Method Room Air 03/30/23 03:32 GENERAL: Alert well well-appearing 28-year-old in no acute distress HEENT: Head atraumatic,EOMI, pupils reactive, face symmetric, moist mucous membranes CARDIOVASCULAR: Regular rate and rhythm without murmurs, rubs or gallops. RESPIRATORY: Breath sounds equal bilaterally, no wheezes rales or rhonchi. Dyspnea ABDOMEN: Soft, nontender. Normoactive bowel sounds all 4 quadrants. No guarding or rebound. EXTREMITIES: Normal range of motion, no clubbing or edema. Neurovascularly intact NEUROLOGICAL: Alert and oriented x4. SKIN: Warm, dry, no laceration, no petechiae, no rashes or lesions. Scores PERC Score Age greater than or equal to 50 years: No Heart rate greater than or equal to 100 bpm: No Room Air O2 Sat less than 95%: No Unilateral leg swelling: No Recent trauma or surgery: No Hemoptysis: No Prior PE or DVT: No Hormone Use: Yes Total PERC Score: 1 Vernon' Criteria for PE Clinical signs and symptoms of DVT: No PE is #1 Dx or equally likely: No Heart rate > 100: No Immobilization at least 3 days or surg in previous 4 weeks: No History of PE or DVT: No Hemoptysis: No Malignancy w/Treatment within 6 months or palliative: No Wells' PE Score total: 0 Course Orders Ordered: ED Orders 03/30/23 03:47 Chest [XR chest 2V] Stat EKG-12 Lead Stat Discontinued Medications Albuterol (Albuterol Hfa Prepack) 1 box [facility] [place] SEEINSTR ONE Stop: 03/30/23 03:48 Last Admin: 03/30/23 04:01 Dose: 1 box Documented By: ELOINA Vital Signs Vital signs: Vital Signs - 8 hr 03/30/23 03:32 03/30/23 04:09 03/30/23 03:38 Temperature 98.5 F Pulse Rate 79 74 Respiratory Rate 18 16 Blood Pressure 131/72 131/72 Pulse Oximetry 100 97 Oxygen Delivery Method Room Air Room Air 03/30/23 03:38 03/30/23 04:00 03/30/23 04:30 Temperature Pulse Rate 82 71 79 Respiratory Rate 18 Blood Pressure Pulse Oximetry 100 96 97 Oxygen Delivery Method 03/30/23 04:37 Temperature 97.7 F Pulse Rate 70 Respiratory Rate 16 Blood Pressure 124/66 Pulse Oximetry 98 Oxygen Delivery Method Room Air MDM - Chest Pain Imaging Data Chest x-ray: My Impression: No acute cardiopulmonary process Radiologist's Impression: Preliminary report no acute cardiopulmonary disease demonstrated ECG Data Interpretation: Normal sinus rhythm rate 62 OR interval 140 QRS [address] changes or inversions MDM Narrative Medical decision making narrative: Patient is a 28-year-old female history of exercise-induced asthma as a kid presenting today with sudden onset of shortness of breath and chest pain. She is not had any fever or chills. X-rays negative vitals are stable she is not tachycardic or febrile. EKG does not show any abnormality. She has PERC score of 1 no Wells score of 0, low probability of pulmonary embolism. Discharge Plan Departure Patient Disposition: Home Clinical Impression: Atypical chest pain Instructions: DI for Atypical Chest Pain Activity Restrictions/Additional Instructions: *You have been diagnosed with atypical chest pain *What to do: At this time your x-ray is negative her EKG is reassuring. Please monitor use your inhaler helping is not helping then to use it. *Continue to take medications as directed Albuterol inhaler 1-2 puffs every 4 hours only if needed Tylenol 1000 mg every 6 hours if needed for [id number] pain Motrin 600 mg every 6 hours if needed for [id number] pain *Follow up with your primary care provider in 2-3 days or call [phone] *Return to ER if you should have increasing pain shortness of breath nausea or any new, worsening or concerning symptoms Prescriptions: No Action phenazopyridine [Pyridium] 200 mg tablet 200 mg PO Q8H PRN (Reason: pain) Qty: 6 0RF medroxyprogesterone 150 mg/mL suspension 150 mg IM [id number] Qty: 1 11RF Referrals: Justine iVdal PA-C [Primary Care Provider] - Stand Alone Forms: Patient Portal/API
--- NOTE | 2023-03-30 03:47 | DI.RAD.S_ITS ---
PROCEDURE: XR CHEST 2V INDICATIONS: chest pain TECHNIQUE: 2 views of the chest were acquired. COMPARISON: None. FINDINGS: Surgical changes and devices: None. Lungs and pleura: Lungs are clear. No pleural effusions or pneumothorax. Mediastinum: Mediastinal contours are normal. Heart size is normal. Bones and chest wall: No suspicious bony abnormalities. Soft tissues appear unremarkable. IMPRESSION: No acute process. Dictated by: Erick Mondragon M.D. on 03/30/2023 at 8:02 Approved by: Erick Mondragon M.D. on 03/30/2023 at 8:02
[2023-03-30 04:00] VITALS: PULSE 71; RESP 18; O2SAT 96
[2023-03-30] MEDS: ALBUTEROL HFA PREPACK 1 BOX MISC (04:01)
[2023-03-30 04:09] VITALS: PULSE 74; RESP 16; O2SAT 97
[2023-03-30 04:30] VITALS: PULSE 79; O2SAT 97
[2023-03-30 04:37] VITALS: BP 124/66; PULSE 70; RESP 16; TEMP 36.5; O2SAT 98
== END 2023-03-30 04:38 | disposition home or self-care (01) ==
PROVIDERS: Emergency Provider Emergency Medicine; PCP Physician Assistant
DX: R07.89 Other chest pain (principal)
CPT/HCPCS: 71046; 93005; 93010; 99281; 99284

== ENCOUNTER 2023-10-21 17:05 | Emergency (ER) | payer OTHER, SELFPAY ==
[2023-10-21 17:21] VITALS: BP 142/78; PULSE 98; RESP 16; TEMP 36.4; O2SAT 99; BMI 27.3
[2023-10-21 17:57] LABS: Bacteria Urine Moderate (10-30); RBC Urine 10-30/HPF (0-5/HPF); Squamous Epithelial Cell Urine 1-5 /HPF (0-5/HPF); WBC Urine >100/HPF (0-5/HPF)
[2023-10-21 18:24] VITALS: BP 123/64; PULSE 87; RESP 16; O2SAT 99
--- NOTE | 2023-10-21 18:36 | ED.FEMALEGU ---
HPI - Female Genitourinary <Perlita Kuhn PA-C - Last Filed: 10/21/23 18:39> General Chief complaint: Urogenital-Female Stated complaint: poss uti/painful papsmear this morning Time Seen by Provider: 10/21/23 17:37 Source: patient Mode of arrival: Ambulatory History of Present Illness HPI Narrative: 28-year-old female presents to the ED with 1 day of dysuria, urinary frequency, urinary urgency. Patient states that she also had a Pap smear earlier today, which seems to have exacerbated her symptoms. Patient endorses subjective fever, denies chills. Patient endorses nausea, denies vomiting. Patient denies abdominal pain, back pain. Related Data Previous Rx's Medication Instructions Recorded medroxyprogesterone 150 mg/mL 150 mg IM [id number] #1 mL 01/07/19 intramuscular suspension phenazopyridine 200 mg tablet 200 mg PO Q8H PRN pain 6 doses #6 07/18/22 (Pyridium) tabs Allergies Allergy/AdvReac Type Severity Reaction Status Date / Time morphine Allergy Intermediate Agitated Verified 10/21/23 17:26 Review of Systems <Perliat Kuhn PA-C - Last Filed: 10/21/23 18:39> Constitutional Constitutional: Denies chills, Denies fatigue, Reports fever(s), Denies frequent falls, Denies lethargy and Denies weakness Eyes Eyes: Denies change in vision, Denies eye discharge, Denies irritation and Denies loss of vision ENT Ears, Nose, Mouth, and Throat: Denies change in voice, Denies dizziness, Denies neck pain, Denies sore throat and Denies throat swelling Cardiovascular Cardiovascular: Denies chest pain, Denies irregular heart rhythm, Denies lightheadedness, Denies palpitations, Denies dyspnea, Denies dyspnea on exertion and Denies orthopnea Respiratory Respiratory: Denies cough, Denies dyspnea, Denies dyspnea on exertion and Denies wheezing Gastrointestinal Gastrointestinal: Denies abdominal pain, Denies change in bowel habits, Denies diarrhea, Reports nausea and Denies vomiting Genitourinary Genitourinary: Reports dysuria and Reports urinary urgency Comments: Urinary frequency Musculoskeletal Musculoskeletal: Denies neck pain and Denies numbness Integumentary/Breasts Skin/Breast: Denies pruritus, Denies erythema, Denies rash and Denies wounds Neurologic Neurologic: Denies behavioral changes, Denies confusion, Denies dizziness, Denies frequent falls, Denies loss of vision, Denies numbness and Denies weakness Psychiatric Psychiatric: Denies anxiety, Denies behavioral changes, Denies confusion, Denies depression, Denies homicidal ideation and Denies suicidal ideation Endocrine Endocrine: Denies fatigue, Denies flushing and Denies palpitations Hematologic/Lymphatic Hematologic/Lymphatic: Denies easy bruising Allergic/Immunologic Allergic/Immunologic: Denies urticaria, Denies throat swelling and Denies wheezing Patient History <Perlita Kuhn PA-C - Last Filed: 10/21/23 18:39> Medical History History of depression History of illicit drug use Migraine Surgical History History of mandibular surgery History of tonsillectomy Family History Other Adopted Substance Use Type: does not use Exam <Perlita Kuhn PA-C - Last Filed: 10/21/23 18:39> Narrative Exam Narrative: Const General:?cooperative, healthy appearing and comfortable [facility] Head:?normal to inspection Ears:?hearing grossly normal bilaterally Nose:?external nose normal Face and sinus:?normal facial exam and sinuses nontender Mouth:?oral mucosae normal Throat:?posterior oropharynx normal Eyes General:?appearance normal, both eyes and all related structures Neck Neck:?normal visual inspection and no lymphadenopathy noted Resp Effort & Inspection:?normal respiratory effort Auscultation:?clear to auscultation bilaterally Cardio Rate:?regular rate Rhythm:?regular rhythm GI Abdomen is soft, nondistended, nontender to palpation. There is no CVA tenderness. Neuro General:?patient alert, patient awake and patient oriented x3 Initial Vital Signs Initial Vital Signs: Vital Signs Temperature 97.5 F L 10/21/23 17:21 Pulse Rate 98 H 10/21/23 17:21 Respiratory Rate 16 10/21/23 17:21 Blood Pressure 142/78 H 10/21/23 17:21 Pulse Oximetry 99 10/21/23 17:21 Oxygen Delivery Method Room Air 10/21/23 17:21 <Evita Holland DO - Last Filed: 10/31/23 07:36> Initial Vital Signs Initial Vital Signs: Vital Signs Temperature 97.5 F L 10/21/23 17:21 Pulse Rate 98 H 10/21/23 17:21 Respiratory Rate 16 10/21/23 17:21 Blood Pressure 142/78 H 10/21/23 17:21 Pulse Oximetry 99 10/21/23 17:21 Oxygen Delivery Method Room Air 10/21/23 17:21 Course <Perlita Kuhn PA-C - Last Filed: 10/21/23 18:39> Orders Ordered: ED Orders 10/21/23 17:30 Ictotest Urine Stat Urine Culture Stat Urine Microscopic Stat Vital Signs Vital signs: Vital Signs - 8 hr 10/21/23 17:21 10/21/23 18:24 Temperature 97.5 F L Pulse Rate 98 H 87 Respiratory Rate 16 16 Blood Pressure 142/78 H 123/64 Pulse Oximetry 99 99 Oxygen Delivery Method Room Air Room Air <Evita Holland DO - Last Filed: 10/31/23 07:36> Orders Ordered: ED Orders 10/21/23 17:30 Ictotest Urine Stat Urine Culture Stat Urine Microscopic Stat Vital Signs Vital signs: Vital Signs - 8 hr 10/21/23 17:21 10/21/23 18:24 Temperature 97.5 F L Pulse Rate 98 H 87 Respiratory Rate 16 16 Blood Pressure 142/78 H 123/64 Pulse Oximetry 99 99 Oxygen Delivery Method Room Air Room Air MDM - Female Genitourinary <JJ [place] Last Filed: 10/21/23 18:39> Lab Data Labs: Lab Results 10/21/23 Range/Units 17:30 Ur Bilirubin Confirm TNP Urine RBC 10-30/hpf H (0-5/HPF) Urine WBC >100/hpf H (0-5/HPF) Ur Squamous Epith Cells 1-5 /hpf (0-5/HPF) Urine Bacteria Moderate (10-30) H (None) Point of Care Testing Test Results Negative Urine Dip Bedside Urine Glucose 250 mg/dl Bedside Urine Bilirubin +++ 4 Bedside Urine Ketone ++ 40 Urine Specific [place] 1.030 Bedside Urine Occult Blood +++ Bedside Urine pH 5.0 Bedside Urine Protein ++ 100 Bedside Urine Urobilinogen 3+ 8mg Bedside Urine Nitrite + Positive Bedside Urine Leukocytes +++ 500 Esterase MDM Narrative Medical decision making narrative: 28-year-old female presents to the ED with 1 day of dysuria, urinary frequency, urinary urgency. UA was positive for a UTI. Urine hCG negative. Prescribed antibiotics. Recommend follow-up with PCP. ED return precautions discussed with patient. Patient verbalized understanding. Medical records reviewed: Yes <Evita Holland DO - Last Filed: 10/31/23 07:36> Lab Data Labs: Lab Results 10/21/23 Range/Units 17:30 Ur Bilirubin Confirm TNP Urine RBC 10-30/hpf H (0-5/HPF) Urine WBC >100/hpf H (0-5/HPF) Ur Squamous Epith Cells 1-5 /hpf (0-5/HPF) Urine Bacteria Moderate (10-30) H (None) Point of Care Testing Test Results Negative Urine Dip Bedside Urine Glucose 250 mg/dl Bedside Urine Bilirubin +++ 4 Bedside Urine Ketone ++ 40 Urine Specific [place] 1.030 Bedside Urine Occult Blood +++ Bedside Urine pH 5.0 Bedside Urine Protein ++ 100 Bedside Urine Urobilinogen 3+ 8mg Bedside Urine Nitrite + Positive Bedside Urine Leukocytes +++ 500 Esterase Discharge Plan Departure Patient Disposition: Home Clinical Impression: UTI (urinary tract infection) Qualifiers: Urinary tract infection type: acute cystitis Hematuria presence: with hematuria Qualified Code(s): N30.01 - Acute cystitis with hematuria Instructions: DI for Urinary Tract Infection (UTI) Activity Restrictions/Additional Instructions: You were evaluated in the ED today for urinary discomfort. Your urine was positive for a urinary tract infection. You are being prescribed antibiotics for it. Please take the antibiotics as prescribed. Please follow-up with your PCP in 3-5 days. Return to the ED if you have worsening symptoms, fevers, chills, persistent vomiting. Prescriptions: No Action phenazopyridine [Pyridium] 200 mg tablet 200 mg PO Q8H PRN (Reason: pain) Qty: 6 0RF medroxyprogesterone 150 mg/mL suspension 150 mg IM [id number] Qty: 1 11RF Referrals: Justine Vidal PA-C [Primary Care Provider] - Stand Alone Forms: Patient Portal/API ED Sign-out <Evita Holland DO - Last Filed: 10/31/23 07:36> Cosign ED Attending Cosignature Attestation: I was immediately available in the department for consultation.
== END 2023-10-21 18:40 | disposition home or self-care (01) ==
PROVIDERS: Emergency Provider Student in an Organized Health Care Education/Training Program; PCP Physician Assistant
DX: N30.01 Acute cystitis with hematuria (principal)
CPT/HCPCS: 81003; 81015; 81025; 87086; 99282

== ENCOUNTER → 2023-12-17 15:52 | Outpatient (CLI) | payer OTHER, SELFPAY | PROVIDERS: PCP Physician Assistant; Visit Provider Nurse Practitioner Family | DX: R39.9 Unspecified symptoms and signs involving the genitourinary system (principal) | CPT/HCPCS: 87086; 87210 ==

== ENCOUNTER → 2024-01-17 12:17 | Outpatient (CLI) | payer OTHER, SELFPAY | PROVIDERS: PCP Physician Assistant; Visit Provider Registered Nurse | DX: R30.0 Dysuria (principal) | CPT/HCPCS: 87086 ==

== ENCOUNTER → 2024-04-29 18:24 | Outpatient (CLI) | payer OTHER, SELFPAY | PROVIDERS: PCP Physician Assistant; Visit Provider Family Medicine | DX: R30.0 Dysuria (principal) | CPT/HCPCS: 87086 ==

== ENCOUNTER 2024-07-13 19:27 | Emergency (ER) | payer BC, SELFPAY ==
[2024-07-13 19:40] VITALS: BP 135/81; PULSE 92; RESP 16; TEMP 36.6; O2SAT 100; BMI 28.1
[2024-07-13 19:56] LABS: Appearance Urine UA CLOUDY; Bilirubin Urine UA NEGATIVE (NEGATIVE); Color Urine UA YELLOW; Glucose Urine UA NEGATIVE (Negative); Ketones Urine UA NEGATIVE (NEGATIVE); Leukocyte Esterase Urine UA 1+ (NEGATIVE); Nitrite Urine UA NEGATIVE (Negative); Occult Blood Urine UA 3+ (Negative); Protein Urine UA 3+ (Negative)
[2024-07-13 20:08] LABS: Bacteria Urine Moderate (10-30); Culture Indicated Urine Specimen Cultured; Mucus Urine 1+ (Negative); RBC Urine 10-30/HPF (0-5/HPF); Squamous Epithelial Cell Urine 1-5 /HPF (0-5/HPF); Urine Volume Low Vol <10mL (spun); WBC Urine 30-100/HPF (0-5/HPF)
--- NOTE | 2024-07-13 21:08 | ED.FEMALEGU ---
HPI - Female Genitourinary General Chief complaint: Urogenital-Female Stated complaint: thinks she has a uti Time Seen by Provider: 07/13/24 19:45 Source: patient Mode of arrival: Ambulatory History of Present Illness HPI Narrative: 29-year-old female presents for symptoms of urinary tract infection. Reports burning, frequency. Symptoms began today. Patient states that she seems to get urinary tract infections frequently, last infection she states she was 1 month ago. Denies flank pain, fevers, nausea vomiting Related Data Home Medications Medication Instructions Recorded Confirmed buprenorphine-naloxone [Suboxone] sublingual 04/29/24 04/29/24 duloxetine [Cymbalta] PO 04/29/24 04/29/24 Previous Rx's Medication Instructions Recorded medroxyprogesterone 150 mg/mL 150 mg IM [id number] #1 mL 01/07/19 intramuscular suspension cephalexin 500 mg capsule 500 mg PO Q12H #10 caps 07/13/24 Allergies Allergy/AdvReac Type Severity Reaction Status Date / Time morphine Allergy Intermediate Agitated Verified 04/29/24 18:27 Patient History Medical History History of depression History of illicit drug use Migraine Surgical History History of mandibular surgery History of tonsillectomy Family History Other Adopted alcohol intake frequency: holidays/special occasions only Substance Use Type: marijuana Exam Initial Vital Signs Initial Vital Signs: Vital Signs Temperature 97.8 F 07/13/24 19:40 Pulse Rate 92 H 07/13/24 19:40 Respiratory Rate 16 07/13/24 19:40 Blood Pressure 135/81 07/13/24 19:40 Pulse Oximetry 100 07/13/24 19:40 Oxygen Delivery Method Room Air 07/13/24 19:40 Const: Awake, alert, no acute distress, nontoxic appearing GI: Soft, nontender, nondistended, no rebound, no guarding MSK: No CVA tenderness, full range of motion Skin: Warm, Dry, intact, no rashes Neuro: AO x3, CN II-XII grossly intact, moves all extremities Course Orders Ordered: Discontinued Medications Cephalexin HCl (Cephalexin 250 Mg Capsule) 500 mg PO NOW ONE Stop: 07/13/24 21:13 Last Admin: 07/13/24 21:17 Dose: 500 mg Documented By: ERASMO Vital Signs Vital signs: Vital Signs - 8 hr 07/13/24 19:40 Temperature 97.8 F Pulse Rate 92 H Respiratory Rate 16 Blood Pressure 135/81 Pulse Oximetry 100 Oxygen Delivery Method Room Air MDM - Female Genitourinary Lab Data Labs: Lab Results 07/13/24 Range/Units 19:45 Urine Color Yellow Urine Appearance Cloudy Urine pH 7.0 (4.5-8.0) Ur Specific [place] 1.020 (1.000-1.035) Urine Protein 3+ H (Negative) Urine Glucose (UA) Negative (Negative) g/dL Urine Ketones Negative (NEGATIVE) Urine Occult Blood 3+ H (Negative) Urine Nitrate Negative (Negative) Urine Bilirubin Negative (NEGATIVE) Urine Urobilinogen 1.0 (0.2) E.U./dL Ur Leukocyte Esterase 1+ H (NEGATIVE) Urine RBC 10-30/hpf H (0-5/HPF) Urine WBC 30-100/hpf H (0-5/HPF) Ur Squamous Epith Cells 1-5 /hpf (0-5/HPF) Urine Bacteria Moderate (10-30) H (None) Urine Mucus 1+ H (Negative) Ur Culture Indicated? Specimen cultured Vol Urine Centrifuged Low vol <10ml (spun) [facility] Narrative Medical decision making narrative: Well-appearing patient with symptoms of UTI. Urinalysis shows leukocyte esterase, many WBCs, moderate bacteria. Negative for nitrites. Culture sent to lab. Patient's last urine micro from April 29, 2024 shows no growth. Patient states that she has never been told to follow up with a specialist for her recurrent infections. Patient advised to follow up with an OBGYN and a referral was provided. Antibiotics sent to pharmacy of choice. Discharge Plan Departure Patient Disposition: Home Clinical Impression: UTI (urinary tract infection) Instructions: DI for Urinary Tract Infection (UTI) Activity Restrictions/Additional Instructions: Antibiotics have been sent to the [facility] in [place]. For your frequent urinary tract infections I do recommend following up with OBGYN. A referral number has been provided. Make sure to drink plenty of fluids. If you have sexual intercourse urinate immediately afterwards. Prescriptions: New cephalexin 500 mg capsule 500 mg PO Q12H Qty: 10 0RF No Action duloxetine [Cymbalta] PO buprenorphine-naloxone [Suboxone] sublingual medroxyprogesterone 150 mg/mL suspension 150 mg IM [id number] Qty: 1 11RF Referrals: Justine Vidal PA-C [Primary Care Provider] - Aidee Myers DO [Physician] - Stand Alone Forms: Patient Portal/API
[2024-07-13] MEDS: cephALEXin 250 MG CAPSULE 500 MG PO (21:17)
== END 2024-07-13 21:21 | disposition home or self-care (01) ==
PROVIDERS: Emergency Provider Emergency Medicine; PCP Physician Assistant
DX: N39.0 Urinary tract infection, site not specified (principal)
CPT/HCPCS: 81001; 87086; 99283